=== PATIENT | male | born 1970 | race Caucasian/White ===

== ENCOUNTER 2020-08-27 17:14 | Emergency (ER) | payer MEDICAID ==
[~2020-08-27] VITALS: Ht 175.3 cm; Wt 77.1 kg
--- NOTE | 2020-08-27 17:27 | NUR ---
at bedside for assessment
--- NOTE | 2020-08-27 18:40 | NUR ---
For med-surgical admission per Dr Toussaint, [facility] hospitalist will be called. Insurance verification for inpatient admission is in progress.
[2020-08-27 18:48] LABS: BASOPHILS # (AUTO) 0.1 K/uL (0.0-8.0); BASOPHILS % (AUTO) 0.9 % (0.0-2.0); EOSINOPHILS # (AUTO) 0.1 K/uL (0.0-0.7); EOSINOPHILS % (AUTO) 2.1 % (0.0-7.0); HEMATOCRIT 41.5 % (36.7-47.1); HEMOGLOBIN 14.2 g/dL (12.5-16.3); LYMPHOCYTES # (AUTO) 2.2 K/uL (20.0-40.0); LYMPHOCYTES % (AUTO) 31.2 % (20.5-51.5); MEAN CORPUSCULAR HEMOGLOBIN 31.6 uug (23.8-33.4); MEAN CORPUSCULAR HGB CONC 34 g/dL (32.5-36.3); MEAN CORPUSCULAR VOLUME 92.1 fL (73.0-96.2); MONOCYTES # (AUTO) 0.6 K/uL (2.0-10.0); MONOCYTES % (AUTO) 8.6 % (0.0-11.0); NEUTROPHILS % (AUTO) 57.2 % (38.5-71.5); PLATELET COUNT (AUTO) 322 K/uL (152-348)
[2020-08-27 18:54] LABS: ETHANOL < 3 MG/DL (0-0)
[2020-08-27 18:55] LABS: CARBON DIOXIDE 25 mmol/L (21-32); CHLORIDE 106 mmol/L (98-107); CREATININE 0.9 mg/dL (0.6-1.3); GLUCOSE 95 mg/dL (74-106); UREA NITROGEN, BLOOD 17 mg/dL (7-18)
[2020-08-27 19:01] LABS: ALANINE AMINOTRANSFERASE 16 U/L (16-63); ALKALINE PHOSPHATASE 52 U/L (50-136); ASPARTATE AMINOTRANSFERASE 13 U/L (15-37); BILIRUBIN,DIRECT 0.1 mg/dL (0.0-0.2); BILIRUBIN,TOTAL 0.5 mg/dL (0.2-1.0); TOTAL PROTEIN, SERUM 7.2 g/dL (6.4-8.2)
[2020-08-27 19:02] LABS: ACETAMINOPHEN < 2.0 ug/mL (10-30)
[2020-08-27 19:07] LABS: THYROID STIMULATING HORMONE 0.506 mIU/mL (0.358-3.740)
[2020-08-27 19:11] LABS: *BILIRUBIN,URIN NEGATIVE (NEGATIVE); *BLOOD, URINE NEGATIVE (NEGATIVE); *CLARITY,URINE CLEAR (CLEAR); *COLOR,URINE LIGHT YELLOW (YELLOW); *KETONES,URINE NEGATIVE (NEGATIVE); *UROBILINOGEN,URINE 0.2 E.U./dl (NORMAL); LEUKOCYTE ESTERASE ,URINE NEGATIVE (NEGATIVE); NITRITE, URINE NEGATIVE (NEGATIVE); UGLUCOSE NEGATIVE (NEGATIVE)
--- NOTE | 2020-08-27 19:19 | NUR ---
IV removed. Catheter intact and site benign. Pressure and 4x4 gauze applied to site. No bleeding noted.
[2020-08-27 19:21] LABS: *AMPHETAMINE, URINE NEGATIVE (NEGATIVE); *CANNABINOID, URINE POSITIVE (NEGATIVE); *COCCAINE, URINE NEGATIVE (NEGATIVE); *OPIATE, URINE NEGATIVE (NEGATIVE); *PHENCYCLIDINE SCREEN,URINE NEGATIVE (NEGATIVE)
[2020-08-27] MEDS ORDERED: CYCLOBENZAPRINE HCL 10 MG TABLET PO ONE (19:30)
[2020-08-27] MEDS ORDERED: methylPREDNISolone SOD SUCC 125 MG/2 ML VIAL IM ONE (19:30)
[2020-08-27] MEDS ORDERED: KETOROLAC TROMETHAMINE 60 MG INJ IM ONE ×2 (19:30→19:36)
[2020-08-27] MEDS ORDERED: methylPREDNISolone SOD SUCC 125 MG/2 ML VIAL ONE (19:36)
[2020-08-27] MEDS ORDERED: NAPR-1164 PO (21:16)
[2020-08-27] MEDS ORDERED: DIAZ10TA PO (21:16)
--- NOTE | 2020-08-27 21:24 | NUR ---
Patient discharged to home in stable condition with family. Written and verbal after care instructions given. Patient verbalizes understanding of instructions. Stressed follow up or return to ER for worsening s/s. Pt ambulated out of ER with steady gait.
[2020-08-27 21:25] VITALS: BP 127/73
== END 2020-08-27 21:25 | disposition home or self-care (01) ==
LOC: ER 17:19
DX: M54.5 Low back pain (principal); R00.1 Bradycardia, unspecified; Z91.81 History of falling; M79.604 Pain in right leg; M51.24 Other intervertebral disc displacement, thoracic region; R20.2 Paresthesia of skin; M48.061 Spinal stenosis, lumbar region without neurogenic claudication
CPT/HCPCS: 36415; 70450; 71045; 72128; 72131; 80048; 80076; 80299; 80307; 80320; 81003; 82140; 83605; 84443; 84484; 85025; 85730; 87040 ×2; 87086; 93005; 96372 ×2; 99285; J1885; J2930; 70030-TC; A4663; G0480